=== PATIENT | female | born 1950 | race Two or more races ===

== ENCOUNTER 2023-04-20 11:53 | Day surgery (SDC) | payer MEDICARE, OTHER ==
[~2023-04-20] VITALS: Ht 157.5 cm; Wt 86.0 kg
[~2023-04-20 11:53] MED LIST: ASPI-1450 PO; BRIM10DR10 OU; BUPIVACAINE HCL/PF 0.5% 30 ML VIAL ONE; CARV6 PO; CHLORHEXIDINE GLUCONATE 2% TOWELETTE [2'S/6'S] TP ONE; CeFAZolin 2 GM/DEXTROSE 50 ML IV ONE; CeFAZolin SODIUM 1 GM VIAL ONE; DICL100G60 TP; DULA4.5P SQ; ETHYL ALCOHOL 62% ANTISEPTIC NASAL SANITIZER 0.6 ML AMPUL NASAL ONE; FAMO20 PO; FERR210T PO; FOLI0.8T43 PO; GABA-529 PO; GELATIN SPONGE,ABSORBABLE 100 MM TP ONE; HEPARIN SODIUM,PORCINE 5,000 UNITS/ML VIAL ONE; INSU100C6 SQ; INSU100V12 SQ; LANT500T7 PO; LATA2.5D14 OU; LEVO75 PO; LIDOCAINE/PF 1% 30 ML VIAL ONE; LIDOCAINE/PF 2% 5 ML VIAL ONE; PATI8.4P PO; POLY17PO47 PO; SODI454P10 PO; SODIUM CHLORIDE 0.9% 1,000 ML IV ONE; SODIUM CHLORIDE 0.9% 1,000 ML ONE; SODIUM CHLORIDE 0.9% 200 ML ONE; THROMBIN, BOVINE 20000 UNITS/VIAL POWDER TP ONE
[2023-04-20] MEDS ORDERED: HEPARIN SODIUM,PORCINE 10,000 UNITS/ML VIAL IV ONE (11:54)
[2023-04-20] MEDS ORDERED: FentaNYL CITRATE PF 100 MCG/2 ML VIAL IVP ONE (11:54)
[2023-04-20] MEDS ORDERED: LIDOCAINE/PF 2% 5 ML VIAL IM ONE (11:54)
[2023-04-20] MEDS ORDERED: CeFAZolin SODIUM 1 GM VIAL IVP ONE (11:54)
[2023-04-20] MEDS ORDERED: 0.9% SODIUM CHLORIDE 10 ML VIAL IVP ONE (11:54)
[2023-04-20] MEDS ORDERED: PROPOFOL 1% ISO-OSM 1000 MG/100 ML BOTTLE IV ONE (11:54)
[2023-04-20 12:40] LABS: BASOPHILS % (AUTO) 0.4 % (0.0-2.0); EOSINOPHILS % (AUTO) 1.8 % (1.0-6.0); HEMATOCRIT 41.7 % (36-46); LYMPHOCYTES # (AUTO) 1.4 K/uL (1.0-4.8); LYMPHOCYTES % (AUTO) 16.3 % (22.0-44.0); MEAN CORPUSCULAR HEMOGLOBIN 30.6 pg (26.0-34.0); MEAN CORPUSCULAR HGB CONC 33.7 G/dL (31.0-37.0); MEAN CORPUSCULAR VOLUME 91 fL (80-100); MONOCYTES # (AUTO) 0.7 K/uL (0.1-1.0); MONOCYTES % (AUTO) 7.9 % (2.0-9.0); NEUTROPHILS # (AUTO) 6.1 K/uL (1.8-7.7); NEUTROPHILS % (AUTO) 73.6 % (40.0-70.0); PLATELET COUNT (AUTO) 228 K/uL (150-450); RED BLOOD CELL COUNT(AUTO) 4.59 MIL/uL (4.00-5.20); RED CELL DISTRIBUTION WIDTH 15.1 % (11.5-14.5); WHITE BLOOD COUNT (AUTO) 8.3 K/uL (4.5-11.0)
[2023-04-20 12:50] LABS: POTASSIUM 4.5 mmol/L (3.5-5.1)
[2023-04-20 12:51] LABS: CALCIUM, TOTAL 9.3 mg/dL (8.8-10.5); CREATININE 7.35 mg/dL (0.60-1.30)
[2023-04-20 12:53] LABS: PROTHROMBIN TIME 10.7 SEC (9.4-11.6)
[2023-04-20 12:57] LABS: ALBUMIN 3.5 g/dL (3.4-5.0); BILIRUBIN,TOTAL 0.5 mg/dL (0.1-1.0); TOTAL PROTEIN, SERUM 8.3 g/dL (6.4-8.2)
[2023-04-20] MEDS ORDERED: VANCOMYCIN 1GM/WATER(PEG/NADA) 200 ML IV ONE (13:30)
[2023-04-20] MEDS ORDERED: LIDOCAINE/PF 1% 30 ML VIAL ONE (14:18)
[2023-04-20] MEDS ORDERED: MEPERIDINE-PF 25 MG/ML VIAL IVP PRN (15:30)
[2023-04-20] MEDS ORDERED: FentaNYL CITRATE PF 100 MCG/2 ML VIAL IVP PRN (15:30)
[2023-04-20] MEDS ORDERED: HYDROmorphone HCL 2 MG/ML SYRINGE IVP PRN (15:30)
[2023-04-20] MEDS ORDERED: FentaNYL CITRATE PF 100 MCG/2 ML VIAL ONE (15:40)
[2023-04-20] MEDS ORDERED: ACETAMINOPHEN 1000 MG/ISO-OSM 100 ML IV ONE (15:45)
[2023-04-20] MEDS ORDERED: NALOXONE HCL 1 MG/ML 2 ML SYRINGE IVP PRN (15:45)
[2023-04-20] MEDS ORDERED: OxyCODONE HCL/ACETAMINOPHEN 10-325 MG TABLET PO ONE (16:00)
[2023-04-20] MEDS ORDERED: OxyCODONE HCL/ACETAMINOPHEN 10-325 MG TABLET ONE (16:49)
[2023-04-20] MEDS ORDERED: OXYGEN THERAPY IH SCH (20:00)
== END 2023-04-20 17:20 | disposition home or self-care (01) ==
LOC: SURGERY 11:53
PROVIDERS: ATTEND Surgery
DX: T82.868A Thrombosis due to vascular prosthetic devices, implants and grafts, initial encounter (principal); E11.22 Type 2 diabetes mellitus with diabetic chronic kidney disease; N18.6 End stage renal disease; Z79.899 Other long term (current) drug therapy; Y83.8 Other surgical procedures as the cause of abnormal reaction of the patient, or of later complication, without mention of misadventure at the time of the procedure; D64.9 Anemia, unspecified; Z98.890 Other specified postprocedural states; Z79.4 Long term (current) use of insulin
CPT/HCPCS: 36833; 71046; 80053; 85025; 85610; 85730; 36415; 93005; J3490 ×3; J0690; J3010; J1644 ×2; J2704; Q9967; J7030; J7050